=== PATIENT | female | born 1980 | race Caucasian/White ===

== ENCOUNTER 2017-04-08 14:32 | Emergency (ER) | payer OTHER ==
[2017-04-08] MEDS: 0.9 % SODIUM CHLORIDE 1,000 ML IV SCH (15:10)
[2017-04-08] MEDS ORDERED: PROMETHAZINE HCL 25 MG/ML VIAL ONE (15:13)
[2017-04-08] MEDS ORDERED: 0.9 % SODIUM CHLORIDE 50 ML IV ONE (15:13)
[2017-04-08] MEDS ORDERED: 0.9 % SODIUM CHLORIDE 1,000 ML IV ONE (15:13)
[2017-04-08] MEDS: HYDROmorphone HCL/PF 1 MG/ML DISP.SYRIN IVP ONE (15:15)
[2017-04-08] MEDS: PROMETHAZINE HCL 12.5 MG in 0.9 % SODIUM CHLORIDE 50 ML IV ONE (15:15)
[2017-04-08 15:27] LABS: APPEARANCE,URINE Clear (CLEAR); COLOR,URINE Yellow (YELLOW); OCCULT BLOOD,URINE 1+ (NEGATIVE); PH URINE 5.5 (5.0 - 8.0); UROBILINOGEN URINE 0.2 Eu (0.2-1.0)
[2017-04-08 16:13] LABS: BASOPHILS % 0.2 (0.0-1.5); EOSINOPHILS % 0.8 % (0.0-6.8); MEAN CORPUSCULAR HEMOGLOBIN 29.6 pg (28.0-34.0); MEAN CORPUSCULAR VOLUME 90.9 fl (80.0-100.0); MONOCYTES % 2.9 % (0.0-11.0); NEUTROPHILS # 13.8 # k/uL (1.4-7.7)
[2017-04-08] MEDS: ONDANSETRON HCL/PF 4 MG/ 2ML VIAL IVP ONE (16:44)
[2017-04-08] MEDS: INSULIN REGULAR, HUMAN 100 UNIT/ML 3ML VIAL IV ONE (17:10)
--- NOTE | 2017-04-08 18:52 | ED Physician Documentation ---
Nausea/Vomiting/Diarrhea - HISTORIAN Historian: patient - HPI Stated Complaint: abdominal pain, N/V Chief Complaint: Nausea,Vomiting,Diarrhea Additional Information: abdominal pain and n/v/d x 2 days Onset: days ago (2) Duration: sudden-onset, persistent Last known Well Date: 04/06/17 Last Known Well Time: 00:00 Timing: sudden onset, still present Context: denies: out of country travel, bad food, recent trauma Severity: moderate Further Comments: no - Associated Symptoms Vomiting: bloody Diarrhea: other (moderate) Abdominal Pain: aching, severe, diffuse, epigastric - ROS CONST: none CVS/RESP: denies: chest pain, shortness of breath, cough, dry cough, non- productive cough, productive cough, bloody cough GI/: other (hematemesis) EYES/ENT: none MS/SKIN/LYMPH: denies: joint pain, leg swelling, rash, swollen glands, ankle swelling NEURO/PSYCH: none - PAST HX Past History: diabetes Type 1, pancreatitis, peptic ulcer Surgeries/Procedures: cholecystectomy, hysterectomy, other (t and a) Immunizations: referred to PCP Allergies/Adverse Reactions: Allergies Allergy/AdvReac Type Severity Reaction Status Date / Time Sulfa (Sulfonamide Allergy Hives Verified 04/08/17 15:49 Antibiotics) Home Medications: Ambulatory Orders Medication Instructions Recorded Famotidine [Pepcid] 20 mg PO BID 04/08/17 Insulin Aspart [Novolog Flexpen] 0 units SUBCUT AC15 04/08/17 Insulin Detemir [Levemir Flex-Pen] 20 unit SQ HS 04/08/17 Lipase/Protease/Amylase [Pancreaze 3 tab PO TID 04/08/17 10,500 Unit Cap] Lisinopril [Zestril] 5 mg PO DAILY 04/08/17 - SOCIAL HX Smoking History: cigarettes Alcohol Use: other (former alcoholic) Drug Use: marijuana - FAMILY HX Family History: none - VITAL SIGNS Vital Signs: Vital Signs Temp Pulse Resp BP Pulse Ox 98.7 F 106 H 20 141/103 96 04/08/17 15:21 04/08/17 15:21 04/08/17 15:21 04/08/17 15:21 04/08/17 15:21 - REVIEWED ASSESSMENTS Nursing Assessment Reviewed: Yes Vitals Reviewed: Yes Progress - Results/Orders Results/Orders: cbc, cmp, ua, amylase, abg, pt/ptt/inr, ct abdomen/pelvis, cxr - Progress Progress: pt. given 1 mg dilaudid and 25 mg phenergan ivp, 1 liter ns, 15 units humulin ivp, 30 mg toradol ivp in er with improvement in symptoms Critical Care Note - Critical Care Note Total Time (mins): 0 ED Results Lab/Radiology - Lab Results Lab Results: Lab Results 04/08/17 04/08/17 04/08/17 16:05 16:05 16:05 WBC 15.35 K/ul H K/ul (4.00-12.00) RBC 4.43 M/ul M/ul (3.90-5.20) Hgb 13.1 g/dL g/dL (12.0-16.0) Hct 40.3 % % (34.5-46.5) MCV 90.9 fl fl (80.0-100.0) MCH 29.6 pg pg (28.0-34.0) MCHC 32.6 g/dL g/dL (30.0-36.0) RDW 12.6 % % (11.3-14.3) Plt Count 349 K/mm3 K/mm3 (130-400) Neut % (Auto) 89.8 % H % (39.0-79.0) Lymph % (Auto) 5.9 % L % (16.0-50.0) [place] % (Auto) 2.9 % % (0.0-11.0) Eos % (Auto) 0.8 % % (0.0-6.8) Baso % (Auto) 0.2 (0.0-1.5) Neut # 13.8 # k/uL H # k/uL (1.4-7.7) Lymph # 0.9 # k/uL # k/uL (0.6-4.0) [place] # 0.4 # k/uL # k/uL (0.0-0.9) Eos # 0.1 # k/uL # k/uL (0.0-0.6) Baso # 0.0 # k/uL # k/uL (0.0-0.5) Reactive Lymphs % 0.5 % % (0.0-5.0) Reactive Lymphs # 0.1 # k/uL # k/uL (0.0-0.8) PT 11.9 Seconds H Seconds (9.7-11.5) INR 1.1 (0.9-1.1) APTT 23.4 Seconds L Seconds (24.5-32.8) Sodium 142 mmol/L mmol/L (136-145) Potassium 3.5 mmol/L mmol/L (3.5-5.0) Chloride 98 mmol/L mmol/L (98-110) Carbon Dioxide 34 mmol/L H mmol/L (20-32) BUN 53 mg/dL H mg/dL (10-26) Creatinine 2.4 mg/dL H mg/dL (0.4-1.5) Estimated Creat Clear 35 Est GFR ( Amer) 29 L (60 - ) Est GFR (Non-Af Amer) 24 L (60 - ) Glucose 637 mg/dL H* mg/dL (70-99) Calcium 9.7 mg/dL mg/dL (8.5-10.5) Total Bilirubin 0.4 mg/dL mg/dL (0.2-1.2) AST 17 U/L U/L (0-41) ALT 62 U/L H U/L (0-45) Alkaline Phosphatase 147 U/L H U/L (46-116) Total Protein 8.1 g/dL g/dL (6.0-8.5) Albumin 4.7 g/dL g/dL (3.0-5.5) Amylase 33 U/L U/L (20-104) Urine Color Urine Appearance Urine pH Ur Specific [place] Urine Protein Urine Ketones Urine Occult Blood Urine Nitrite Urine Bilirubin Urine Urobilinogen Ur Leukocyte Esterase Urine RBC Urine WBC Ur Squamous Epith Cells Urine Bacteria Urine Glucose 04/08/17 15:22 WBC RBC Hgb Hct MCV MCH MCHC RDW Plt Count Neut % (Auto) Lymph % (Auto) [place] % (Auto) Eos % (Auto) Baso % (Auto) Neut # Lymph # [place] # Eos # Baso # Reactive Lymphs % Reactive Lymphs # PT INR APTT Sodium Potassium Chloride Carbon Dioxide BUN Creatinine Estimated Creat Clear Est GFR ( Amer) Est GFR (Non-Af Amer) Glucose Calcium Total Bilirubin AST ALT Alkaline Phosphatase Total Protein Albumin Amylase Urine Color Yellow (YELLOW) Urine Appearance Clear (CLEAR) Urine pH 5.5 (5.0 - 8.0) Ur Specific [place] >=1.030 H (1.010-1.030) Urine Protein 3+ mg/dL H mg/dL (NEGATIVE) Urine Ketones Negative mg/dL mg/dL (NEGATIVE) Urine Occult Blood 1+ H (NEGATIVE) Urine Nitrite Negative (NEGATIVE) Urine Bilirubin 1+ H (NEGATIVE) Urine Urobilinogen 0.2 Eu Eu (0.2-1.0) Ur Leukocyte Esterase Negative (NEGATIVE) Urine RBC 0-2 (0-2 HPF) Urine WBC 2-5 (0-5 HPF) Ur Squamous Epith Cells Few (NEG-FEW) Urine Bacteria Moderate H (NEGATIVE) Urine Glucose 3+ mg/dL H mg/dL (NEGATIVE) - Radiology Radiology Impressions: ct abdomen/pelvis shows pancreatitis, ileus vs. sbo - Orders Orders: ED Orders Category Date Time Status Insert NG tube 1T Care 04/08/17 16:[address] IV Lock 1T Care 04/08/17 14:[address] ABD & PELVIS W/O CON Stat Exams 04/08/17 Taken AMYLASE Routine Lab 04/08/17 16:05 Completed ARTERIAL BLOOD GAS Stat Lab 04/08/17 17:25 Ordered CBC/PLATELET/DIFF Routine Lab 04/08/17 16:05 Completed CMP Routine Lab 04/08/17 16:05 Completed PT-INR Routine Lab 04/08/17 16:05 Completed PTT Routine Lab 04/08/17 16:05 Completed URINALYSIS Routine Lab 04/08/17 15:22 Completed 0.9 % Sodium Chloride [Normal Saline] 1,000 ml Med 04/08/17 15:00 Ordered IV .Q1H 0.9 % Sodium Chloride [Sodium Chloride] 50 ml Med 04/08/17 15:13 Discontinued IV .STK-MED Chem Sticks Med 04/08/17 14:30 Ordered 1 each MC PRN HYDROmorphone HCL/PF [Dilaudid] Med 04/08/17 14:49 Discontinued 1 mg IVP NOW ONE Insulin Regular, Human [Humulin R] Med 04/08/17 16:52 Discontinued 15 unit IV NOW ONE Ondansetron HCl/Pf [Zofran 4 mg/2 ml] Med 04/08/17 14:49 Discontinued 8 mg IVP NOW ONE Promethazine HCl [Phenergan] Med 04/08/17 15:13 Discontinued 25 mg .ROUTE .STK-MED ONE Promethazine HCl [Phenergan] 12.5 mg Med 04/08/17 15:11 Discontinued 0.9 % Sodium Chloride [Sodium Chloride] 50 ml IV NOW Oxygen NOW Oxygen 04/08/17 15:30 Ordered Nausea Physical Exam - EXAM General Appearance: alert, moderate distress EENT: eye inspection normal, ENT inspection normal, pharynx normal, no signs of dehydration, MERNA, no nystagmus, TM's nml Neck: normal inspection, thyroid normal, supple Respiratory: no resp distress, chest non-tender, breath sounds normal CVS: reg rate & rhythm, heart sounds normal, equal pulses, no murmur, no gallop , PMI nml, no JVD Abdomen: no organomegaly, tenderness (generalized, sp. epigastrium), abnml bowel sounds (diminished). No: rebound, McBurney's point tender, Rovsing's sign Back: non-tender, painless ROM Skin: warm/dry, normal color Extremities: non-tender, normal range of motion, no evidence of injury, no edema Neuro/Psych: oriented X3, CN's nml as tested, motor nml, sensation nml Discharge Clincal Impression: Ileus, Dehydration Pancreatitis Qualifiers: Chronicity: acute Pancreatitis type: idiopathic Acute pancreatitis complication : no infection or necrosis Qualified Code(s): K85.00 - Idiopathic acute pancreatitis without necrosis or infection Uncontrolled type 1 diabetes mellitus Qualifiers: Diabetes mellitus complication status: with hyperglycemia Qualified Code(s): E10.65 - Type 1 diabetes mellitus with hyperglycemia Referrals: Primary Doctor,No [Primary Care Provider] - 2 Days Home Medications: Ambulatory Orders Famotidine [Pepcid] 20 mg PO BID 04/08/17 Insulin Aspart [Novolog Flexpen] 0 units SUBCUT AC15 04/08/17 Insulin Detemir [Levemir Flex-Pen] 20 unit SQ HS 04/08/17 Lipase/Protease/Amylase [Joey Strong 10,500 Unit Cap] 3 tab PO TID 04/08/17 Lisinopril [Zestril] 5 mg PO DAILY 04/08/17 Comments: case discussed with Dr. Weiss who accepts transfer to [facility] Condition: Stable Disposition: 01 HOME, SELF-CARE Decision to Admit: NO Decision Time: 18:30
[2017-04-08] MEDS: KETOROLAC TROMETHAMINE 30 MG/1ML VIAL IVP ONE (19:05)
[2017-04-08 19:27] VITALS: BP 96/68
--- NOTE | 2017-04-09 04:34 | Diagnostic Imaging Report ---
Name: FELICE BUTTS ~~ ~~ : 78 ~~ Acc #: [id number]~~ DOS: Apr 08, 2017 3:29:27 PM CDT ~~ Mod: CT\SR ~~ Desc: CT ABD & PELVIS W/O CO 1 of 2 KASEY HAHN~ [address] [place] [address]. [address] ~ ~ ~ ~ Report Submission Date: Apr 08, 2017 4:14:20 PM CDT Patient ~ Study Name: FELICE BUTTS ~ Date: Apr 08, 2017 3:29:27 PM CDT ~ Modality Type: CT\SR Gender: F ~ Description: CT ABD & PELVIS W/O CO : 78 ~ Institution: [facility] [place] Physician: KASEY HAHN ~ ~ ~ ~ CT Abdomen/pelvis without contrast History: ABDOMEN PAIN, NAUSEA, VOMITING Multiple axial images of the abdomen and pelvis are submitted reconstructions Findings: No comparison study Minimal lingular atelectasis No free intraperitoneal air. Lower lumbar spine degenerative changes are present Moderate size hiatal hernia is present. The liver, spleen adrenal glands are within normal limits. Significant calcification noted throughout the pancreas suggestive of chronic pancreatitis. The gallbladder not identified, may be collapsed versus post cholecystectomy status There is no hydronephrosis bilaterally. Calcifications of the aorta and its branches is present, there is wall thickening of the urinary bladder, uterus is surgically absent The sigmoid colon is redundant with air-fluid levels, the appendix is within normal limits, it is slightly bulbous in size Air fluid levels are seen in the loops of small bowel . Small fat containing umbilical hernia is present Impression: 1. Dilated loops small bowel with air-fluid levels suggestive of partial small bowel obstruction versus ileus. Small bowel wall thickening, series 3 images 140 - 169 in the right abdomen 2. Chronic pancreatitis. Minimal fat stranding at pancreatic tail. Please correlate with lab values if concern for pancreatitis 3. Small to moderate hiatal hernia. 4. Wall thickening of urinary bladder, consider elective cystoscopic / ultrasound evaluation. 5. Air fluid levels in the sigmoid and descending colon 6. Recommend followup. ~ Electronically signed on Apr 08, 2017 4:14:20 PM CDT by: Pricila Abhyankar Findings discussed by Dr. Chavira with Dr. Hahn on 04/08/17 at approx. 4: 30 pm IP COUNSEL ~Differential considerations include acute on chronic pancreatitis, ileocolitis Addendum electronically signed by Pricila Chavira on April 08, 2017 4:30:34 PM CDT MTDD
== END 2017-04-08 19:15 | disposition home or self-care (01) ==
LOC: ED 14:32
DX: K85.00 Idiopathic acute pancreatitis without necrosis or infection (principal); K56.7 Ileus, unspecified; E86.0 Dehydration; E10.65 Type 1 diabetes mellitus with hyperglycemia
CPT/HCPCS: 74176; 80053; 81002; 82150; 85025; 85610; 85730; J1170; J1815; J1885; J2550; J7030; 96361; 96365; 96366; 96375; 99283; S1016

== ENCOUNTER 2017-05-15 08:55 | Observation (INO) | payer OTHER ==
--- NOTE | 2017-05-15 09:07 | ED Physician Documentation ---
Abdominal Pain - HISTORIAN Historian: patient - HPI Chief Complaint: Abdominal Pain Onset: hours Duration: constant Timing: worse Context: denies: out of country travel, bad food Severity: severe Quality: sharp, stabbing Associated Symptoms: nausea, vomiting, coffee ground emesis. denies: fever, chills Exacerbated by: nothing Relieved by: nothing Further Comments: yes - ROS CONST: other (chills) GI/: denies: bloody urine, bloody stools, dark urine CVS/RESP: none - SOCIAL HX Smoking History: cigarettes, less than 1 pack/day Alcohol Use: other (former heavy drinker) - FAMILY HX Family History: other (pancreatitis) - PAST HX Past History: other (diabetes on insulin) Ischemic Bowel Risk Factors: none Surgeries/Procedures: cholecystectomy, hysterectomy, other (T&A) Immunizations: referred to PCP Home Medications: Ambulatory Orders Medication Instructions Recorded Famotidine [Pepcid] 20 mg PO BID 04/08/17 Insulin Aspart [Novolog Flexpen] 0 units SUBCUT AC15 04/08/17 Insulin Detemir [Levemir Flex-Pen] 20 unit SQ HS 04/08/17 Lipase/Protease/Amylase [Pancreaze 3 tab PO TID 04/08/17 10,500 Unit Cap] Lisinopril [Zestril] 5 mg PO DAILY 04/08/17 Allergies/Adverse Reactions: Allergies Allergy/AdvReac Type Severity Reaction Status Date / Time Sulfa (Sulfonamide Allergy Hives Verified 05/15/17 09:24 Antibiotics) - VITAL SIGNS Vital Signs: Vital Signs Temp Pulse Resp BP Pulse Ox 98.3 F 76 18 118/79 94 05/15/17 18:00 05/15/17 19:40 05/15/17 19:40 05/15/17 18:00 05/15/17 18:00 - REVIEWED ASSESSMENTS Nursing Assessment Reviewed: Yes Vitals Reviewed: Yes Progress - Progress Progress: 0957 Patient is still complaining of pain, nausea has improved.Has not had any further vomiting. Will give toradal IV for pain 10:01 Labs reviewed. Patient has mild renal insufficiency but appears to be at baseline for her. Hyperglycemic. Amylase is normal. CT scan show some diffuse colonic thickening suggestive of colitis. Changes of chronic pancreatitis. Exam: still has some epigastric tenderness, 12:10 Still nauseated some, phenergen did help some. Pain is better but it is still bothering her some. I suspect patient is having more gastritis issues with hematemisis. Will admit for care and watch H and H. ED Results Lab/Radiology - Lab Results Lab Results: Lab Results 05/15/17 05/15/17 05/15/17 10:06 10:04 09:15 WBC RBC Hgb Hct MCV MCH MCHC RDW Plt Count Neut % (Auto) Lymph % (Auto) [place] % (Auto) Eos % (Auto) Baso % (Auto) Neut # (Auto) Lymph # (Auto) [place] # (Auto) Eos # (Auto) Baso # (Auto) Reactive Lymphs % Reactive Lymphs # Sodium Potassium Chloride Carbon Dioxide BUN Creatinine Estimated Creat Clear Est GFR ( Amer) Est GFR (Non-Af Amer) Glucose Calcium Total Bilirubin AST ALT Alkaline Phosphatase Total Protein Albumin Amylase Lipase 6 U/L L U/L (13-60) Urine Color Yellow (YELLOW) Urine Appearance Clear (CLEAR) Urine pH 5.5 (5.0 - 8.0) Ur Specific [place] 1.025 (1.010-1.030) Urine Protein 2+ mg/dL H mg/dL (NEGATIVE) Urine Ketones Negative mg/dL mg/dL (NEGATIVE) Urine Occult Blood 1+ H (NEGATIVE) Urine Nitrite Negative (NEGATIVE) Urine Bilirubin Negative (NEGATIVE) Urine Urobilinogen 0.2 Eu Eu (0.2-1.0) Ur Leukocyte Esterase Negative (NEGATIVE) Urine Glucose 2+ mg/dL H mg/dL (NEGATIVE) Morphine Screen Non negative ng/mL H ng/mL (<300) Oxycodone Screen Negative ng/mL ng/mL (<100) Methadone Screen Negative ng/mL ng/mL (<300) POC Urine Barbiturates Negative ng/mL ng/mL (<300) Tricyclic Antidepress Negative ng/mL ng/mL (<300) Phencyclidine Screen Negative ng/mL ng/mL (<25) Amphetamines Screen Negative ng/mL ng/mL (<1000) POC Ur Methamphetamine Negative ng/mL ng/mL (<1000) MDMA Negative ng/mL ng/mL (<500) Benzodiazepines Screen Negative ng/mL ng/mL (<300) Cocaine Screen Negative ng/mL ng/mL (<150) U Cannabinoids Screen Non negative ng/mL H ng/mL (< 50) 05/15/17 05/15/17 09:15 09:15 WBC 8.90 K/ul K/ul (4.00-12.00) RBC 4.06 M/ul M/ul (3.90-5.20) Hgb 12.5 g/dL g/dL (12.0-16.0) Hct 38.0 % % (34.5-46.5) MCV 93.4 fl fl (80.0-100.0) MCH 30.7 pg pg (28.0-34.0) MCHC 32.9 g/dL g/dL (30.0-36.0) RDW 13.1 % % (11.3-14.3) Plt Count 353 K/mm3 K/mm3 (130-400) Neut % (Auto) 85.3 % H % (39.0-79.0) Lymph % (Auto) 9.6 % L % (16.0-50.0) [place] % (Auto) 2.9 % % (0.0-11.0) Eos % (Auto) 1.3 % % (0.0-6.8) Baso % (Auto) 0.4 (0.0-1.5) Neut # (Auto) 7.6 # k/uL # k/uL (1.4-7.7) Lymph # (Auto) 0.8 # k/uL # k/uL (0.6-4.0) [place] # (Auto) 0.3 # k/uL # k/uL (0.0-0.9) Eos # (Auto) 0.1 # k/uL # k/uL (0.0-0.6) Baso # (Auto) 0.0 # k/uL # k/uL (0.0-0.5) Reactive Lymphs % 0.5 % % (0.0-5.0) Reactive Lymphs # 0.0 # k/uL # k/uL (0.0-0.8) Sodium 143 mmol/L mmol/L (136-145) Potassium 4.4 mmol/L mmol/L (3.5-5.0) Chloride 109 mmol/L mmol/L (98-110) Carbon Dioxide 23 mmol/L mmol/L (20-32) BUN 35 mg/dL H mg/dL (10-26) Creatinine 2.0 mg/dL H mg/dL (0.4-1.5) Estimated Creat Clear 45 Est GFR ( Amer) 36 L (60 - ) Est GFR (Non-Af Amer) 30 L (60 - ) Glucose 370 mg/dL H mg/dL (70-99) Calcium 10.4 mg/dL mg/dL (8.5-10.5) Total Bilirubin 0.3 mg/dL mg/dL (0.2-1.2) AST 19 U/L U/L (0-41) ALT 35 U/L U/L (0-45) Alkaline Phosphatase 135 U/L H U/L (46-116) Total Protein 8.3 g/dL g/dL (6.0-8.5) Albumin 4.8 g/dL g/dL (3.0-5.5) Amylase 31 U/L U/L (20-104) Lipase Urine Color Urine Appearance Urine pH Ur Specific [place] Urine Protein Urine Ketones Urine Occult Blood Urine Nitrite Urine Bilirubin Urine Urobilinogen Ur Leukocyte Esterase Urine Glucose Morphine Screen Oxycodone Screen Methadone Screen POC Urine Barbiturates Tricyclic Antidepress Phencyclidine Screen Amphetamines Screen POC Ur Methamphetamine MDMA Benzodiazepines Screen Cocaine Screen U Cannabinoids Screen - Orders Orders: ED Orders Category Date Time Status Place IV Lock 1T Care 05/15/17 09:[address] ABD & PELVIS W/O CON Stat Exams 05/15/17 Completed AMYLASE Routine Lab 05/15/17 09:15 Completed CBC/PLATELET/DIFF Routine Lab 05/15/17 09:15 Completed CMP Routine Lab 05/15/17 09:15 Completed DRUG SCREEN URINE MEDICAL ONLY Routine Lab 05/15/17 10:06 Completed LIPASE Routine Lab 05/15/17 09:15 Completed OPIATES,QUANT Routine Lab 05/15/17 10:15 Received UA MACRO DIP ONLY Routine Lab 05/15/17 10:04 Completed URINALYSIS Routine Lab 05/15/17 10:52 Ordered 0.9 % Sodium Chloride [Normal Saline] 1,000 ml Med 05/15/17 09:30 Ordered IV .Q1H 0.9 % Sodium Chloride [Sodium Chloride] 100 ml Med 05/15/17 11:35 Discontinued IV .STK-MED Acetaminophen [Ofirmev] Med 05/15/17 11:04 Discontinued 500 mg IV NOW ONE Insulin Regular, Human [Humulin R] Med 05/15/17 10:06 Discontinued 10 unit SQ NOW ONE Ketorolac Tromethamine [Toradol] Med 05/15/17 10:05 Discontinued 30 mg IVP NOW ONE Ondansetron HCl/Pf [Zofran 4 mg/2 ml] Med 05/15/17 09:17 Discontinued 4 mg IVP NOW ONE Ondansetron HCl/Pf [Zofran 4 mg/2 ml] Med 05/15/17 10:05 Discontinued 4 mg IVP NOW ONE Pantoprazole Sodium [Protonix] Med 05/15/17 11:35 Discontinued 40 mg .ROUTE .STK-MED ONE Pantoprazole Sodium [Protonix] 40 mg Med 05/15/17 12:00 Ordered 0.9 % Sodium Chloride [Sodium Chloride] 50 ml IV DAILY Promethazine HCl [Phenergan] Med 05/15/17 11:23 Discontinued 25 mg IM NOW ONE Promethazine HCl [Phenergan] 25 mg Med 05/15/17 11:04 Discontinued 0.9 % Sodium Chloride [Sodium Chloride] 50 ml IV NOW fentaNYL CITRATE/PF [Duragesic] Med 05/15/17 09:17 Discontinued 50 mcg IVP NOW ONE Abdominal Pain Physical Exam - Physical Exam General Appearance: severe distress NECK: normal inspection, thyroid normal RESPIRATORY: no resp distress, chest non-tender, breath sounds normal. No: wheezes, rales, rhonchi CVS: reg rate & rhythm, heart sounds normal, equal pulses ABDOMEN: soft, tenderness (epigastric area), decreased BS. No: rebound, guarding BACK: normal inspection, no CVA tenderness SKIN: warm/dry, normal color NEURO: mood/affect nml Vital Signs: Vital Signs Temp Pulse Resp BP Pulse Ox 98.3 F 76 18 118/79 94 05/15/17 18:00 05/15/17 19:40 05/15/17 19:40 05/15/17 18:00 05/15/17 18:00 Discharge Clincal Impression: Nausea & vomiting Uncontrolled type 1 diabetes mellitus Qualifiers: Diabetes mellitus complication status: with kidney complications Diabetes mellitus complication detail: with chronic kidney disease Chronic kidney disease stage: stage 2 (mild) Qualified Code(s): E10.22 - Type 1 diabetes mellitus with diabetic chronic kidney disease Home Medications: Ambulatory Orders Famotidine [Pepcid] 20 mg PO BID 04/08/17 Insulin Aspart [Novolog Flexpen] 0 units SUBCUT AC15 04/08/17 Insulin Detemir [Levemir Flex-Pen] 20 unit SQ HS 04/08/17 Lipase/Protease/Amylase [Joey Strong 10,500 Unit Cap] 3 tab PO TID 04/08/17 Lisinopril [Zestril] 5 mg PO DAILY 04/08/17 Condition: Fair Disposition: 01 HOME, SELF-CARE Decision to Admit: [id number] Date of Decison to Admit: 05/15/17 Decision Time: 12:14
[2017-05-15] MEDS ORDERED: fentaNYL CITRATE/PF 100 MCG/ 2ML AMP IVP ONE (09:17)
[2017-05-15 09:21] LABS: BASOPHILS % 0.4 (0.0-1.5); EOSINOPHILS % 1.3 % (0.0-6.8); MEAN CORPUSCULAR HEMOGLOBIN 30.7 pg (28.0-34.0); MEAN CORPUSCULAR VOLUME 93.4 fl (80.0-100.0); MONOCYTES % 2.9 % (0.0-11.0); NEUTROPHILS # 7.6 # k/uL (1.4-7.7)
[2017-05-15] MEDS ORDERED: 0.9 % SODIUM CHLORIDE 1,000 ML IV ONE ×3 (09:24→21:22)
[2017-05-15] MEDS ORDERED: 0.9 % SODIUM CHLORIDE 1,000 ML IV SCH (09:30)
[2017-05-15] MEDS: ONDANSETRON HCL/PF 4 MG/ 2ML VIAL IVP ONE (09:32)
[2017-05-15] MEDS ORDERED: ONDANSETRON HCL/PF 4 MG/ 2ML VIAL IVP ONE (10:05)
[2017-05-15] MEDS ORDERED: KETOROLAC TROMETHAMINE 30 MG/1ML VIAL IVP ONE (10:05)
[2017-05-15] MEDS ORDERED: INSULIN REGULAR, HUMAN 100 UNIT/ML 3ML VIAL SQ ONE (10:06)
[2017-05-15 10:14] LABS: APPEARANCE,URINE CLEAR (CLEAR); COLOR,URINE YELLOW (YELLOW); OCCULT BLOOD,URINE 1+ (NEGATIVE); PH URINE 5.5 (5.0 - 8.0); UROBILINOGEN URINE 0.2 Eu (0.2-1.0)
[2017-05-15 10:15] LABS: AMPHETAMINE NEGATIVE ng/mL (<1000); BARBITURATES NEGATIVE ng/mL (<300); CANNABINOIDS NON NEGATIVE ng/mL (< 50); COCAINE NEGATIVE ng/mL (<150); METHAMPHETAMINE NEGATIVE ng/mL (<1000); METHYLENEDIOXYMETHAMPHETAMINE NEGATIVE ng/mL (<500); OPIATES NON NEGATIVE ng/mL (<300)
[2017-05-15] MEDS ORDERED: ACETAMINOPHEN 1,000 MG/100 ML INJ IV ONE ×2 (11:04→21:09)
[2017-05-15] MEDS ORDERED: PROMETHAZINE HCL 25 MG in 0.9 % SODIUM CHLORIDE 50 ML IV ONE (11:04)
[2017-05-15] MEDS ORDERED: PROMETHAZINE HCL 25 MG/ML VIAL IM ONE (11:23)
[2017-05-15] MEDS ORDERED: PANTOPRAZOLE SODIUM INJ. 40 MG VIAL ONE ×2 (11:35→21:07)
[2017-05-15] MEDS ORDERED: 0.9 % SODIUM CHLORIDE 100 ML IV ONE (11:35)
[2017-05-15] MEDS: PANTOPRAZOLE SODIUM 40 MG in 0.9 % SODIUM CHLORIDE 50 ML IV SCH ×3 (11:44→21:19)
[2017-05-15 13:25] VITALS: BMI 26.9
[2017-05-15] MEDS ORDERED: ENOXAPARIN SODIUM 30 MG/0.3 ML DISP.SYRIN SQ ONE (13:44)
[2017-05-15] MEDS: 0.9 % SODIUM CHLORIDE 1,000 ML IV SCH (13:53)
[2017-05-15] MEDS ORDERED: ENOXAPARIN SODIUM 30 MG/0.3 ML DISP.SYRIN SQ SCH (14:00)
[2017-05-15] MEDS: ONDANSETRON HCL/PF 4 MG/ 2ML VIAL IVP PRN ×2 (15:00→22:36)
[2017-05-15] MEDS: ACETAMINOPHEN 1,000 MG/100 ML INJ IV PRN ×2 (15:00→19:12)
[2017-05-15 18:51] LABS: LIPASE 6 U/L (13-60)
--- NOTE | 2017-05-15 20:17 | Diagnostic Imaging Report ---
OMAR GUILLEN [facility] [address] [facility] [address] [place], [place]. [address] Report Submission Date: May 15, 2017 10:20:19 AM CDT Patient Study Name: FELICE HOLDEN Date: May 15, 2017 9:49:50 AM CDT Modality Type: CT\SR Gender: F Description: CT ABD & PELVIS W/O CO : 78 Institution: [facility] Physician: OMAR GUILLEN Computed tomography of the abdomen and pelvis without contrast a History: Epigastric pain Findings: Transverse abdomen and pelvis sections are obtained without contrast revealing extensive pancreatic calcification. A hypodense fluid collection is present in the gastrosplenic ligament measuring 4 x 6.7 cm. This is new since the April 08, 2017 scan. Minimal surrounding soft tissue stranding is observed. Cholecystectomy has been performed. Bowel loops exhibit normal caliber including the appendix. Mural thickening is observed throughout the colon. The liver, spleen, adrenals, and kidneys are unremarkable. Pelvic sections reveal fluid in small bowel. Hysterectomy has been performed. The urinary bladder is unremarkable. Impression: 1. Diffuse colonic mural thickening suggests colitis. Nonspecific small bowel fluid is also observed. 2. Chronic calcific pancreatitis with new gastrosplenic ligament fluid collection suggesting sequela of acute pancreatitis. 3. Hysterectomy and cholecystectomy. Electronically signed on May 15, 2017 10:20:19 AM CDT by: Nabeel KELLY
[2017-05-15] MEDS ORDERED: ONDANSETRON HCL/PF 4 MG/ 2ML VIAL ONE (21:07)
[2017-05-15] MEDS ORDERED: 0.9 % SODIUM CHLORIDE 50 ML IV ONE (21:07)
[2017-05-16] MEDS: ACETAMINOPHEN 1,000 MG/100 ML INJ IV PRN ×3 (00:39→09:30)
[2017-05-16] MEDS: 0.9 % SODIUM CHLORIDE 1,000 ML IV SCH ×2 (02:21→11:25)
[2017-05-16] MEDS ORDERED: ACETAMINOPHEN 1,000 MG/100 ML INJ IV ONE ×2 (05:17→09:39)
[2017-05-16] MEDS ORDERED: ONDANSETRON HCL/PF 4 MG/ 2ML VIAL ONE (05:17)
[2017-05-16] MEDS: ONDANSETRON HCL/PF 4 MG/ 2ML VIAL IVP PRN (05:20)
[2017-05-16] MEDS ORDERED: 0.9 % SODIUM CHLORIDE 50 ML IV ONE (05:30)
[2017-05-16] MEDS ORDERED: PANTOPRAZOLE SODIUM INJ. 40 MG VIAL ONE (05:30)
[2017-05-16 08:37] LABS: BASOPHILS % 0.3 (0.0-1.5); EOSINOPHILS % 0.7 % (0.0-6.8); MEAN CORPUSCULAR HEMOGLOBIN 29.8 pg (28.0-34.0); MEAN CORPUSCULAR VOLUME 93.1 fl (80.0-100.0); MONOCYTES % 4.5 % (0.0-11.0); NEUTROPHILS # 6.9 # k/uL (1.4-7.7)
[2017-05-16] MEDS: PANTOPRAZOLE SODIUM 40 MG in 0.9 % SODIUM CHLORIDE 50 ML IV SCH ×2 (09:00→11:25)
[2017-05-16] MEDS ORDERED: SALINE FLUSH 10 ML DISP.SYRIN IVF ONE (10:08)
[2017-05-16 11:27] VITALS: BP 160/98
--- NOTE | 2017-05-16 12:25 | Discharge Summary ---
Discharge Summary - Discharge Sumary History of Present Illness: 36yo white female with a several day history of nausea and vomiting. Has a history of chronic pancreatitis with acute exacerbation and felt that she might be having some more problems and was seen in the ED. Amylase was normal, CT scan did not show any acute pancreatic changes. There was some diffuse edema in the colon consistient with possible mild colitis. Patient was not having any diarrhea or melena/hematachezia. Patient nausea was treated with IV Zofran and Phenergan. Patient continued to have some nausea and vomiting and was admitted. Condition at Discharge: Stable Home Medications: Ambulatory Orders Medication Instructions Recorded Famotidine [Pepcid] 20 mg PO BID 04/08/17 Insulin Aspart [Novolog Flexpen] 0 units SUBCUT AC15 04/08/17 Insulin Detemir [Levemir Flex-Pen] 20 unit SQ HS 04/08/17 Lipase/Protease/Amylase [Pancreaze 3 tab PO TID 04/08/17 Dr 10,500 Unit Cap] Lisinopril [Zestril] 5 mg PO DAILY 04/08/17 Tramadol HCl [Ultram] 50 mg PO Q6 PRN #10 tablet 05/16/17 Consultations this Visit: None Procedures this Visit: None Allergies/Adverse Reactions: Allergies Allergy/AdvReac Type Severity Reaction Status Date / Time Sulfa (Sulfonamide Allergy Hives Verified 05/15/17 09:24 Antibiotics) Discharge Summary: Patient presented to the ED complaining of acute flair up of pancreatitis. Patient states that she had chronic intermittent pancreatitis for 15 years. Recently has become more frequent. has been admiited at [facility] [place] [facility] recently for this. On admission amylase and lipase were normal. It was felt that the patient was not have an acute exacerbation of her pancreatitis. Ernul that the patient may be having a viral gastroenteritis. Patient was started on IV fluids of normal saline. Patient was given IV Zofran and Phenergan to help with nausea. Within 24 hours patient was feeling some better. Patient was able to tolerate PO and take. Patient WBC count remains stable. Patient blood sugar was approved. Patient was subsequently discharged home in stable condition.Patient was advised to follow up with her permit care provider for possible further diagnostic studies it should continue to have a mildly vomiting. Patient was advised to make sure that she drink a lot of fluids today well hydrated. - Final Diagnosis (1) Gastritis Problems: improved (2) Nausea & vomiting Problems: improved (3) Uncontrolled type 1 diabetes mellitus Problems: improved
[2017-05-18 11:51] LABS: CANNABINOIDS CONFIRMATION >150 ng/mL (<15)
== END 2017-05-16 13:30 | disposition home or self-care (01) ==
LOC: ED 08:55 → SOUTH 12:12
PROVIDERS: ADMIT Family Medicine; ATTEND Family Medicine
DX: K29.70 Gastritis, unspecified, without bleeding (principal); R11.2 Nausea with vomiting, unspecified; E10.65 Type 1 diabetes mellitus with hyperglycemia; Z79.4 Long term (current) use of insulin
CPT/HCPCS: 36415; 51701; 74176; 80053; 80365; 80377; 81002; 82150; 83690; 85025; G0378; J1650; J1815; J1885; J2405; J2550; J3010; J7030; 96361; 96372; 96374; 96375; 96376; 99284; G0481; G0482; S1016